=== PATIENT | female | born 1975 | race Caucasian/White ===

== ENCOUNTER 2017-10-14 12:29 | Emergency (ER) | payer BC ==
[~2017-10-14 12:29] MED LIST: FLUO40CA76 PO; LOR05 PO
--- NOTE | 2017-10-14 12:40 | ER Report ---
History and Physical Time Seen By MD: 12:38 HPI/ROS CHIEF COMPLAINT: Calf pain HISTORY OF PRESENT ILLNESS: This is a 41-year-old female who presents to the emergency department for bilateral calf pain. Patient states that she's had increased calf pain over the last several days, seems to be getting worse. Patient states she is concerned that she has a DVT. Patient has a history of tachycardia and has been evaluated for this however today she is very anxious, tearful and states her heart rate is little bit higher than normal and she is very nervous about a possible DVT in her lower extremities. Patient denies chest pain or shortness of breath, no headaches no fevers no rashes. Patient also states that she has a known history of abnormal EKGs, she has been evaluated in [facility] and [facility]. REVIEW OF SYSTEMS: Constitutional: No fever, no chills. Eyes: No discharge. ENT: No sore throat. Cardiovascular: As above. Respiratory: No cough, no shortness of breath. Gastrointestinal: No abdominal pain, no vomiting. Genitourinary: No hematuria. Musculoskeletal: As above. Skin: No rashes. Neurological: No headache. Allergies: Coded Allergies: Penicillins (Verified Allergy, Mild, , 10/23/09) Home Meds Reported Medications Lorazepam (Ativan) 0.5 Mg Tab, 0.25 MG PO, 0 Refills 10/23/09 Fluoxetine Hcl (Prozac) 40 Mg Capsule, 40 MG PO QDAY, #20 0 Refills 10/23/09 Past Medical/Surgical History Patient has a past medical and surgical history of wearing glasses, drinks occasionally, , tonsils and adenoids removed, anxiety and depression. Reviewed Nurses Notes: Yes Hx Substance Use Disorder: No Hx Alcohol Use: Yes (MONTHLY) Constitutional Vital Sign - Last 24 Hours 10/14/17 10/14/17 10/14/17 10/14/17 12:41 13:30 14:30 14:41 Temp 98.4 Pulse 89 86 108 Resp 16 16 B/P (MAP) 122/64 112/71 (85) 121/70 (87) 121/70 (87) Pulse Ox 94 100 O2 Delivery Room Air Room Air Physical Exam General Appearance: The patient is alert, has no immediate need for airway protection and no signs of toxicity, very anxious and tearful. Eyes: Pupils equal and round no pallor or injection. ENT, Mouth: Mucous membranes are moist. Respiratory: There are no retractions, lungs are clear to auscultation. Cardiovascular: Regular rate and rhythm, pounding, no murmurs, clicks or rubs. Gastrointestinal: Abdomen is soft and non tender, no masses, bowel sounds normal. Neurological: Alert and oriented 4. Moving all extremities. Following all commands. No focal neuro deficits. Skin: Warm and dry, no rashes. Musculoskeletal: Neck is supple non tender. Extremities mild bilateral calf tenderness, no erythema, swelling or deformities. Pulses equal and bilateral lower extremities. DIFFERENTIAL DIAGNOSIS: After history and physical exam differential diagnosis was considered for DVT, electrolyte imbalance, anxiety and depression. Medical Decision Making Data Points Result Diagram: 10/14/17 1308 10/14/17 1308 Laboratory Hematology Test 10/14/17 13:08 Red Blood Count 4.34 M/uL (4.17-5.56) Mean Corpuscular Volume 92.7 fL (80.0-96.0) Mean Corpuscular Hemoglobin 32.5 pg (26.0-33.0) Mean Corpuscular Hemoglobin Concent 35.0 g/dL (32.0-36.0) Red Cell Distribution Width 12.9 % (11.5-14.5) Mean Platelet Volume 7.5 fL (7.2-11.1) Neutrophils (%) (Auto) 65.2 % (39.4-72.5) Lymphocytes (%) (Auto) 24.3 % (17.6-49.6) Monocytes (%) (Auto) 8.8 % (4.1-12.4) Eosinophils (%) (Auto) 0.5 % (0.4-6.7) Basophils (%) (Auto) 1.2 % (0.3-1.4) Nucleated RBC Relative Count (auto) 0.1 /100WBC Neutrophils # (Auto) 3.5 K/uL (2.0-7.4) Lymphocytes # (Auto) 1.3 K/uL (1.3-3.6) Monocytes # (Auto) 0.5 K/uL (0.3-1.0) Eosinophils # (Auto) 0.0 K/uL (0.0-0.5) Basophils # (Auto) 0.1 K/uL (0.0-0.1) Nucleated RBC Absolute Count (auto) 0.00 K/uL Sodium Level 139 mmol/L (137-145) Potassium Level 3.8 mmol/L (3.5-5.0) Chloride Level 103 mmol/L (98-107) Carbon Dioxide Level 25 mmol/L (22-31) Blood Urea Nitrogen 4 mg/dl (7-18) Creatinine 0.80 mg/dl (0.52-1.04) Glomerular Filtration Rate Calc > 60.0 Random Glucose 99 mg/dl (75-110) Calcium Level 9.1 mg/dl (8.4-10.2) Total Bilirubin 0.6 mg/dl (0.2-1.3) Aspartate Amino Transf (AST/SGOT) 36 U/L (0-35) Alanine Aminotransferase (ALT/SGPT) 24 U/L (0-56) Alkaline Phosphatase 71 U/L (0-126) Total Protein 6.5 g/dl (6.3-8.2) Albumin 3.6 g/dl (3.5-5.0) Chemistry Test 10/14/17 13:08 White Blood Count 5.4 k/uL (4.5-11.0) Red Blood Count 4.34 M/uL (4.17-5.56) Hemoglobin 14.1 g/dL (12.0-16.0) Hematocrit 40.2 % (34.0-47.0) Mean Corpuscular Volume 92.7 fL (80.0-96.0) Mean Corpuscular Hemoglobin 32.5 pg (26.0-33.0) Mean Corpuscular Hemoglobin Concent 35.0 g/dL (32.0-36.0) Red Cell Distribution Width 12.9 % (11.5-14.5) Platelet Count 297 K/uL (150-450) Mean Platelet Volume 7.5 fL (7.2-11.1) Neutrophils (%) (Auto) 65.2 % (39.4-72.5) Lymphocytes (%) (Auto) 24.3 % (17.6-49.6) Monocytes (%) (Auto) 8.8 % (4.1-12.4) Eosinophils (%) (Auto) 0.5 % (0.4-6.7) Basophils (%) (Auto) 1.2 % (0.3-1.4) Nucleated RBC Relative Count (auto) 0.1 /100WBC Neutrophils # (Auto) 3.5 K/uL (2.0-7.4) Lymphocytes # (Auto) 1.3 K/uL (1.3-3.6) Monocytes # (Auto) 0.5 K/uL (0.3-1.0) Eosinophils # (Auto) 0.0 K/uL (0.0-0.5) Basophils # (Auto) 0.1 K/uL (0.0-0.1) Nucleated RBC Absolute Count (auto) 0.00 K/uL Glomerular Filtration Rate Calc > 60.0 Calcium Level 9.1 mg/dl (8.4-10.2) Total Bilirubin 0.6 mg/dl (0.2-1.3) Aspartate Amino Transf (AST/SGOT) 36 U/L (0-35) Alanine Aminotransferase (ALT/SGPT) 24 U/L (0-56) Alkaline Phosphatase 71 U/L (0-126) Total Protein 6.5 g/dl (6.3-8.2) Albumin 3.6 g/dl (3.5-5.0) EKG/Imaging EKG Interpretation 12 lead EKG: Time of EKG 1253. Rhythm: Sinus tachycardia with shortened GA, ventricular rate 126 bpm. Dillon: normal QRS: normal ST segments: ST depression in V3 V4 V5 and V6, no reciprocal changes. Questionable rate related changes. No previous EKGs to compare to. Patient does state that she has a known abnormal EKG history. I was able to obtain 12-lead EKG from the [facility] in [facility], the 12-lead EKG is unchanged from today's EKG. 08/17/2016. Imaging Location: Patient: Mckayla Darby : 1975 Visit/Account:[id number] Date of Sevice: 10/14/2017 VENOUS DOPP LOWER BILAT EXTREM ADDITIONAL PERTINENT HISTORY: Bilateral calf pain. COMPARISON STUDIES: None. FINDINGS: Grayscale compression, duplex and color Doppler interrogation of the bilateral lower extremity deep veins from common femoral vein to proximal calf was performed. The greater saphenous vein in the ipsilateral proximal thigh was evaluated using similar technique. Bilateral lower extremity: Common femoral vein: Negative. Femoral vein: Negative. Deep femoral vein: Negative. Popliteal vein: Negative. Visualized deep calf veins Negative. Greater saphenous vein in the proximal thigh: Negative. Popliteal fossa: There is a small mixed echogenicity lesion in the left popliteal fossa measuring 1.5 x 1.8 x 2.1 cm most consistent with a small popliteal cyst with potential previous hemorrhage within this. IMPRESSION: 1. No evidence of deep venous thrombosis involving the bilateral lower extremity. 2. Findings most consistent with a small popliteal cyst potentially with previous hemorrhage within the center of this cyst or related to previous infection. Report Dictated By: Franko Bains MD at 10/14/2017 2:41 PM Report E-Signed By: Franko Bains MD at 10/14/2017 2:44 PM [id number] ED Course/Re-evaluation ED Course The patient was admitted to a room. A history and physical were obtained. Differential diagnoses were considered. A CBC, CMP were obtained. Lab studies unremarkable. Bilateral lower extremity ultrasound was negative for DVTs. I did review these results with the patient, explaining that there is no indication of a DVT lab studies were unremarkable I did tell her that it could be that she just had some cramping in her calves, to drink plenty of water and try some gentle range of motion and stretching exercises. The patient had not questions or concerns at this time and was discharged home. Decision to Disposition Date: Oct 14, 2017 Decision to Disposition Time: 14:55 Depart Departure Latest Vital Signs Vital Signs Date Time Temp Pulse Resp B/P (MAP) Pulse Ox O2 Delivery O2 Flow Rate FiO2 10/14/17 14:41 108 16 121/70 (87) 100 Room Air 10/14/17 12:41 98.4 Impression: Primary Impression: Bilateral calf pain Condition: Improved Disposition: HOME OR SELF-CARE Patient Instructions: Leg Pain (ED) Additional Instructions: No evidence of a clot, blood work and EKG look good. No concerning findings today. Drink plenty of water. Get plenty of rest. Take ibuprofen and/or Tylenol as needed for pain. Try stretching your calves to help with the discomfort. Follow-up with your primary care provider within one week for reevaluation. Return to the emergency department for any other concerns or worsening symptoms. JOHANNY ELENA [employer] Oct 14, 2017 12:40
[2017-10-14 13:24] LABS: PLATELET COUNT, AUTOMATED 297 K/uL (150-450)
[2017-10-14 14:41] VITALS: BP 121/70
--- NOTE | 2017-10-14 14:46 | RADIOLOGY IMAGING REPORT ---
FACILITY: [facility] PATIENT NAME: Mckayla Darby : 1975 MR: [id number] V: [id number] EXAM DATE: ORDERING PHYSICIAN: JOHANNY ELENA TECHNOLOGIST: [place] [facility] [place] Patient: Mckayla Darby : 1975 Visit/Account:[id number] Date of Sevice: 10/14/2017 VENOUS DOPP LOWER BILAT EXTREM ADDITIONAL PERTINENT HISTORY: Bilateral calf pain. COMPARISON STUDIES: None. FINDINGS: Grayscale compression, duplex and color Doppler interrogation of the bilateral lower extremity deep v eins from common femoral vein to proximal calf was performed. The greater saphenous vein in the ipsil ateral proximal thigh was evaluated using similar technique. Bilateral lower extremity: Common femoral vein: Negative. Femoral vein: Negative. Deep femoral vein: Negative. Popliteal vein: Negative. Visualized deep calf veins Negative. Greater saphenous vein in the proximal thigh: Negative. Popliteal fossa: There is a small mixed echogenicity lesion in the left popliteal fossa measuring 1.5 x 1.8 x 2.1 cm most consistent with a small popliteal cyst with potential previous hemorrhage within this. IMPRESSION: 1. No evidence of deep venous thrombosis involving the bilateral lower extremity. 2. Findings most consistent with a small popliteal cyst potentially with previous hemorrhage within t he center of this cyst or related to previous infection. Report Dictated By: Franko Bains MD at 10/14/2017 2:41 PM Report E-Signed By: Franko Bains MD at 10/14/2017 2:44 PM [id number]
--- NOTE | 2017-10-14 14:50 | EKG ---
FACILITY: [facility] [place] PATIENT NAME: GIOVANNI DIGGS : [id number] MR: [id number] V: [id number] EXAM DATE: ORDERING PHYSICIAN: JOHANNY ELENA TECHNOLOGIST: ENA Patel Reason : Blood Pressure : / mmHG Vent. Rate : 126 BPM Atrial Rate : 126 BPM P-R Int : 076 ms QRS Dur : 068 ms QT Int : 394 ms P-R-T Axes : 062 104 074 degrees QTc Int : 570 ms Sinus tachycardia with short [place] Rightward axis Low voltage QRS Septal infarct , age undetermined ST and T wave abnormality, consider inferior ischemia ST and T wave abnormality, consider anterolateral ischemia Abnormal ECG No previous ECGs available Confirmed by CHELSI KOHLER ([id number]) on 10/14/2017 10:19:21 PM Referred By: THEA Confirmed By:CHELSI KOHLER
== END 2017-10-14 15:00 | disposition home or self-care (01) ==
LOC: ER 12:45
DX: M79.662 Pain in left lower leg (principal); M79.661 Pain in right lower leg
CPT/HCPCS: 36415; 82040; 82247; 82310; 82374; 82435; 82565; 82947; 84075; 84132; 84155; 84295; 84450; 84460; 84520; 85025; 93005; 93970; 99284